=== PATIENT | male | born 2000 | race Two or more races ===

== ENCOUNTER 2023-10-08 17:25 | Outpatient (OUT) | payer OTHER, SELFPAY ==
--- NOTE | 2023-10-08 | XR_ITS ---
The [address] [address] Patient Name: PARKER SOMMERS MRN: [id number] date: 2000 Sex: M Assigned Patient Location: RAD Current Patient Location: RAD Accession/Order Number: [id number] Exam Date: 10/08/2023 17:38 Report Date: 10/08/2023 18:43 At the request of: GREG LOVE Procedure: XR chest 2V EXAM: XR chest 2V HISTORY: R05.3; Chronic cough COMPARISON: None. TECHNIQUE: Upright PA and lateral chest x-ray FINDINGS: The heart is not enlarged and the vasculature is not distended. No acute infiltrate, effusion or pneumothorax is identified. The osseous structures are grossly intact. XR/XR chest 2V IMPRESSION: No acute infiltrate or evidence of cardiac decompensation. Direct comparison with a previous study may be helpful in confirming the chronicity of these findings. Electronically authenticated by: DARNELL WICK Date: 10/08/2023 18:43
== END 2023-10-08 17:26 | disposition home or self-care (01) ==
PROVIDERS: PCP Family Medicine; Visit Provider Family Medicine
DX: R05.3 Chronic cough (principal)
CPT/HCPCS: 71046